=== PATIENT | male | born 1965 | race Caucasian/White ===

== ENCOUNTER → 2020-07-26 | Outpatient (CLI) | payer MEDICARE, SELFPAY | LOC: CT 07-10 10:00 | DX: C34.92 Malignant neoplasm of unspecified part of left bronchus or lung (principal); R59.0 Localized enlarged lymph nodes; J43.2 Centrilobular emphysema; E27.9 Disorder of adrenal gland, unspecified; I71.4 Abdominal aortic aneurysm, without rupture | CPT/HCPCS: 71260; Q9967 ==

== ENCOUNTER → 2020-12-19 | Outpatient (CLI) | payer MEDICARE, SELFPAY | LOC: CT 08:30 | DX: C34.12 Malignant neoplasm of upper lobe, left bronchus or lung (principal); C79.31 Secondary malignant neoplasm of brain | CPT/HCPCS: 36415; 70470; 71260; 74160; 82565; Q9967 ==

== ENCOUNTER → 2021-04-01 | Outpatient (CLI) | payer MEDICARE | LOC: CT 08:33 | DX: C34.12 Malignant neoplasm of upper lobe, left bronchus or lung (principal) | CPT/HCPCS: 36415; 70470; 71260; 74160; 82565; Q9967 ==

== ENCOUNTER → 2021-07-08 | Outpatient (CLI) | payer MEDICARE ==
[2021-07-08 11:22] LABS: RED BLOOD COUNT 5.1 M/UL (4.20-5.50); WHITE BLOOD COUNT 11.5 K/UL (4.5-11.0)
[2021-07-09 07:10] LABS: BILIRUBIN, TOTAL 0.3 mg/dL (0.0-1.2); CALCIUM, SERUM 9.6 mg/dL (8.7-10.2); CREATININE, SERUM 0.79 mg/dL (0.76-1.27); GLOBULIN, TOTAL 4.3 g/dL (1.5-4.5); POTASSIUM, SERUM 4.9 mmol/L (3.5-5.2); PROTEIN, TOTAL, SERUM 8.5 g/dL (6.0-8.5)
== END ==
LOC: LAB 10:17
PROVIDERS: Internal Medicine Hematology & Oncology
DX: C79.31 Secondary malignant neoplasm of brain (principal)
CPT/HCPCS: 36415; 80053; 85025

== ENCOUNTER → 2021-08-27 | Outpatient (CLI) | payer MEDICARE ==
[2021-08-27 11:24] LABS: HEMOGLOBIN 15.4 gm/dl (14.0-17.5); RED BLOOD COUNT 5.11 M/UL (4.20-5.50); WHITE BLOOD COUNT 10.6 K/UL (4.5-11.0)
[2021-08-27 11:38] LABS: BUN/CREATININE RATIO 15 (0-10)
== END ==
LOC: CT 10:35
PROVIDERS: Internal Medicine Hematology & Oncology
DX: R05.3 Chronic cough (principal); J44.9 Chronic obstructive pulmonary disease, unspecified; C79.31 Secondary malignant neoplasm of brain; E27.9 Disorder of adrenal gland, unspecified; Z79.899 Other long term (current) drug therapy
CPT/HCPCS: 36415; 70470; 71046; 71260; 74160; 80053; 84436; 84443; 85025; Q9967

== ENCOUNTER → 2021-09-26 | Outpatient (CLI) | payer MEDICARE ==
[2021-09-26 11:47] LABS: HEMOGLOBIN 15.3 gm/dl (14.0-17.5); WHITE BLOOD COUNT 10.8 K/UL (4.5-11.0)
[2021-09-26 12:28] LABS: BUN/CREATININE RATIO 13 (0-10)
== END ==
LOC: LAB 10:54
PROVIDERS: Internal Medicine Hematology & Oncology
DX: M25.551 Pain in right hip (principal); J44.9 Chronic obstructive pulmonary disease, unspecified
CPT/HCPCS: 36415; 73502; 80053; 84439; 84443; 85025

== ENCOUNTER → 2021-11-18 | Outpatient (CLI) | payer MEDICARE | LOC: LAB 08:42 | DX: Z20.822 Contact with and (suspected) exposure to COVID-19 (principal) | CPT/HCPCS: U0003 ==

== ENCOUNTER 2021-11-19 05:39 | Inpatient (IN) | payer MEDICARE ==
[~2021-11-19] VITALS: Ht 175.3 cm; Wt 73.9 kg
[2021-11-19 06:00] LABS: HEMOGLOBIN 15.2 gm/dl (14.0-17.5); RED BLOOD COUNT 4.84 M/UL (4.20-5.50); WHITE BLOOD COUNT 13.9 K/UL (4.5-11.0)
[2021-11-19 06:28] LABS: BUN/CREATININE RATIO 15 (0-10)
== END 2021-11-19 13:11 | disposition left against medical advice (07) | DRG 65 ==
LOC: ER1 05:39 → CDU 08:12
PROVIDERS: Family Medicine; ADMIT Internal Medicine
DX: I63.9 Cerebral infarction, unspecified (principal); G81.94 Hemiplegia, unspecified affecting left nondominant side; C79.31 Secondary malignant neoplasm of brain; Z20.822 Contact with and (suspected) exposure to COVID-19; R47.1 Dysarthria and anarthria; I10 Essential (primary) hypertension; E78.5 Hyperlipidemia, unspecified; I48.0 Paroxysmal atrial fibrillation; F17.210 Nicotine dependence, cigarettes, uncomplicated; R29.704 NIHSS score 4; R47.81 Slurred speech; Z85.118 Personal history of other malignant neoplasm of bronchus and lung; Z79.01 Long term (current) use of anticoagulants; Z95.0 Presence of cardiac pacemaker; Z88.8 Allergy status to other drugs, medicaments and biological substances; Z59.00 Homelessness unspecified; Z80.9 Family history of malignant neoplasm, unspecified
CPT/HCPCS: 70450; 70496; 70498; 80053; 80061; 82550; 82553; 84484; 85025; 85610; 85730; 92610; 93005; 99285; Q9967

== ENCOUNTER → 2021-12-26 | Outpatient (CLI) | payer MEDICARE ==
[2021-12-26 09:46] LABS: HEMOGLOBIN 14.7 gm/dl (14.0-17.5); RED BLOOD COUNT 4.69 M/UL (4.20-5.50); WHITE BLOOD COUNT 10.9 K/UL (4.5-11.0)
[2021-12-26 10:10] LABS: BUN/CREATININE RATIO 13 (0-10)
== END ==
LOC: LAB 08:53
PROVIDERS: Internal Medicine Hematology & Oncology
DX: J44.9 Chronic obstructive pulmonary disease, unspecified (principal)
CPT/HCPCS: 36415; 80053; 84439; 84443; 85025

== ENCOUNTER → 2022-01-16 | Outpatient (CLI) | payer MEDICARE | LOC: CT 08:30 | DX: C34.90 Malignant neoplasm of unspecified part of unspecified bronchus or lung (principal) | CPT/HCPCS: 70470; 71260; 74160; Q9967 ==

== ENCOUNTER → 2022-02-13 | Outpatient (CLI) | payer MEDICARE ==
[2022-02-14 10:03] LABS: BUN/CREATININE RATIO 14 (0-10)
== END ==
LOC: LAB 16:48
PROVIDERS: Internal Medicine Hematology & Oncology
DX: C34.90 Malignant neoplasm of unspecified part of unspecified bronchus or lung (principal)
CPT/HCPCS: 36415; 80053; 84439; 84443

== ENCOUNTER → 2022-03-13 | Outpatient (CLI) | payer MEDICARE ==
[2022-03-13 10:27] LABS: HEMOGLOBIN 15.4 gm/dl (14.0-17.5); RED BLOOD COUNT 5.22 M/UL (4.20-5.50); WHITE BLOOD COUNT 13.6 K/UL (4.5-11.0)
[2022-03-13 11:09] LABS: BUN/CREATININE RATIO 16 (0-10)
== END ==
LOC: LAB 09:59
PROVIDERS: Internal Medicine Hematology & Oncology
DX: C79.31 Secondary malignant neoplasm of brain (principal)
CPT/HCPCS: 36415; 80053; 84439; 84443; 85025